=== PATIENT | male | born 1950 | race Caucasian/White ===

== ENCOUNTER 2020-12-11 09:32 | Inpatient (IN) | payer OTHER ==
[~2020-12-11] VITALS: Ht 172.7 cm; Wt 92.1 kg
--- NOTE | 2020-12-11 09:45 | NUR ---
PT [facility] FROM [facility] C/O WORSENING PAIN FROM HERNIA, STATES HAD HERNIA X 5 MONTHS, USUALLY HE BE ABLE TO REDUCE IT HIMSELF BUT UNABLE TO LATELY BECAUSE OF PAIN. PT DENIES ANY OTHER COMPLAIN HEAD OF TALENT MANAGEMENT. DENIES CHEST PAIN, NO CONSTIPATION ENDORSED. STABLE VITALS. AWAITING MD MURGUIA.
--- NOTE | 2020-12-11 10:06 | NUR ---
DR GARVEY AT BEDSIDE FOR EVAL.
--- NOTE | 2020-12-11 10:08 | NUR ---
PT ENDORSES TO DR GARVEY THAT HE NOTED BLOOD IN HIS STOOL THIS MORNING.
--- NOTE | 2020-12-11 10:10 | NUR ---
IV LINE STARTED. UNABLE TO DRAW BLOOD. LAB CALLED FOR BLOOD DRAW.
[2020-12-11] MEDS ORDERED: IV NS 0.9% 1,000 ML BAG IV ONE (10:30)
[2020-12-11 10:49] LABS: BASOPHILS % (AUTO) 0.6 % (0.0-2.0); EOSINOPHILS % (AUTO) 1.5 % (0.0-6.0); HEMATOCRIT 39 % (39-51); HEMOGLOBIN 13.1 g/dL (13.5-17.5); LYMPHOCYTES # (AUTO) 0.9 K/uL (0.8-4.8); LYMPHOCYTES % (AUTO) 12.1 % (20.0-44.0); MEAN CORPUSCULAR HGB CONC 34 g/dl (31.0-36.0); MEAN CORPUSCULAR VOLUME 85 fL (80-96); MONOCYTES # (AUTO) 0.4 K/uL (0.1-1.30); MONOCYTES % (AUTO) 4.8 % (2.0-12.0); NEUTROPHILS # (AUTO) 6.3 K/uL (1.8-8.9); PLATELET COUNT (AUTO) 330 K/uL (150-450); WHITE BLOOD COUNT (AUTO) 7.8 K/uL (4.3-11.0)
[2020-12-11 10:56] LABS: CALCIUM, SERUM 9.7 mg/dL (8.5-10.1); CREATININE 2.8 mg/dL (0.6-1.3); POTASSIUM 4.9 mmol/L (3.5-5.1)
[2020-12-11 11:03] LABS: ALBUMIN 4.3 g/dL (3.4-5.0); BILIRUBIN,DIRECT 0.2 mg/dL (0.0-0.2); BILIRUBIN,TOTAL 0.8 mg/dL (0.2-1.0); TOTAL PROTEIN, SERUM 8.6 g/dL (6.4-8.2)
--- NOTE | 2020-12-11 11:23 | NUR ---
PT TO RADIOLOGY FOR ABDOMINAL CT SCAN VIA [facility].
--- NOTE | 2020-12-11 11:25 | NUR ---
CALLED [facility] [phone] PCP IS [facility] [phone]
--- NOTE | 2020-12-11 11:30 | NUR ---
CALLED [facility]. [facility] [phone] OFFICE. NOT THERE. [employer] WORKER [employer] INSTRUMENTS INSPECTOR IS UZMA CAMERON [phone]
--- NOTE | 2020-12-11 11:37 | NUR ---
[employer] SALES COUNTERPERSON IS UZMA CAMERON [phone] GARVEY
--- NOTE | 2020-12-11 11:38 | NUR ---
RETURNED FROM CT SCAN.
--- NOTE | 2020-12-11 12:19 | NUR ---
CALLED [facility] [phone] NO LABS PER [facility]
[2020-12-11] MEDS ORDERED: ATOR80TA PO (13:05)
[2020-12-11] MEDS ORDERED: SPIR25TA6 PO (13:05)
[2020-12-11] MEDS ORDERED: FAMO-131 PO (13:05)
[2020-12-11] MEDS ORDERED: METO25TA6 PO (13:05)
[2020-12-11] MEDS ORDERED: ASPI-1420 PO (13:05)
[2020-12-11] MEDS ORDERED: INSU100V39 SQ ×2 (13:05)
[2020-12-11] MEDS ORDERED: INSU100V7 SQ (13:05)
[2020-12-11] MEDS ORDERED: CHOL200010 PO (13:05)
[2020-12-11] MEDS ORDERED: AMIO200T5 PO (13:05)
[2020-12-11] MEDS ORDERED: AMLO10TA4 PO (13:05)
[2020-12-11] MEDS ORDERED: BLOO-668 IN (13:05)
[2020-12-11] MEDS ORDERED: BENA40TA8 PO (13:05)
[2020-12-11] MEDS ORDERED: LORA10TA7 PO (13:05)
[2020-12-11] MEDS ORDERED: PANT40TA49 PO (13:05)
[2020-12-11] MEDS ORDERED: ONDANSETRON HCL/PF 4 MG/2 ML VIAL IVP PRN (13:30)
[2020-12-11] MEDS ORDERED: ZOLPIDEM TARTRATE 5 MG TABLET PO PRN (13:30)
[2020-12-11] MEDS ORDERED: MAGNESIUM HYDROXIDE 30 ML UDC PO PRN (13:30)
[2020-12-11] MEDS ORDERED: HEPARIN SODIUM, PORCINE 5000 UNITS/1 ML VIAL SQ ONE (13:30)
[2020-12-11] MEDS ORDERED: PIPERACILLIN /TAZOBACTAM 3.375 G in IV D5W 50 ML IV ONE (13:30)
[2020-12-11] MEDS ORDERED: ACETAMINOPHEN 325 MG TABLET PO PRN (13:30)
--- NOTE | 2020-12-11 14:20 | NUR ---
MARCIAL VERBAL AUTH FOR ADMISSION WILL FOLLOW UP ON MONDAY
--- NOTE | 2020-12-11 14:57 | NUR ---
bed 108
--- NOTE | 2020-12-11 15:08 | NUR ---
REPORT GIVEN TO CHILANGO AVILA. AWAITING TRANSFER TO FLOOR.
[2020-12-11] MEDS: IV NS 0.9% 1,000 ML IV PRN ×2 (17:20→21:24)
[2020-12-11 19:49] VITALS: BP 110/68
[2020-12-11 20:00] VITALS: BP 108/71
[2020-12-11] MEDS ORDERED: DEXTROSE 50%-WATER 50 ML DISP.SYRIN IV PRN (20:00)
[2020-12-11] MEDS: ATORVASTATIN 40 MG TABLET PO SCH (21:24)
[2020-12-11] MEDS: BLOOD SUGAR DIAGNOSTIC 1 EACH STRIP IN SCH (21:24)
[2020-12-11] MEDS: INSULIN REGULAR, HUMAN 100 UNIT/ML 3 ML VIAL SQ PRN (21:32)
[2020-12-11] MEDS: INSULIN GLARGINE, 100 UNIT/ML CARTRIDGE SQ SCH (21:32)
[2020-12-11] MEDS ORDERED: FAMOTIDINE (20 MG) 20 MG TABLET PO SCH (22:00)
[2020-12-12 04:00] VITALS: BP 93/52
[2020-12-12 06:16] LABS: EOSINOPHILS % (AUTO) 7.8 % (0.0-6.0); HEMATOCRIT 38 % (39-51); HEMOGLOBIN 12.6 g/dL (13.5-17.5); LYMPHOCYTES # (AUTO) 1.9 K/uL (0.8-4.8); LYMPHOCYTES % (AUTO) 39.4 % (20.0-44.0); MEAN CORPUSCULAR HGB CONC 33 g/dl (31.0-36.0); MEAN CORPUSCULAR VOLUME 86 fL (80-96); MONOCYTES # (AUTO) 0.5 K/uL (0.1-1.30); MONOCYTES % (AUTO) 9.5 % (2.0-12.0); NEUTROPHILS % (AUTO) 42.3 % (43.0-81.0); PLATELET COUNT (AUTO) 313 K/uL (150-450); RED BLOOD CELL COUNT(AUTO) 4.43 MIL/uL (4.5-6.0); WHITE BLOOD COUNT (AUTO) 4.8 K/uL (4.3-11.0)
[2020-12-12] MEDS: IV NS 0.9% 1,000 ML IV PRN ×2 (06:33→21:10)
[2020-12-12 06:44] LABS: CALCIUM, SERUM 9.1 mg/dL (8.5-10.1); CREATININE 2.3 mg/dL (0.6-1.3); PHOSPHORUS 4.3 mg/dL (2.5-4.9); POTASSIUM 5.3 mmol/L (3.5-5.1)
[2020-12-12] MEDS: PANTOPRAZOLE 40 MG TABLET.DR PO SCH (07:49)
[2020-12-12] MEDS: BLOOD SUGAR DIAGNOSTIC 1 EACH STRIP IN SCH ×4 (07:49→21:06)
[2020-12-12] MEDS: AMIODARONE HCL 200 MG TABLET PO SCH (08:06)
[2020-12-12] MEDS: ASPIRIN EC 81 MG TABLET.DR PO SCH (08:06)
[2020-12-12] MEDS: CHOLECALCIFEROL 1,000 UNIT TABLET (VIT D3) PO SCH (08:06)
[2020-12-12] MEDS: LORATADINE 10 MG TABLET PO SCH (08:06)
[2020-12-12] MEDS: AMLODIPINE BESYLATE 10 MG TABLET PO SCH (08:06)
[2020-12-12] MEDS: METOPROLOL TARTRATE 25 MG TABLET PO SCH (08:07)
[2020-12-12] MEDS: HEPARIN SODIUM, PORCINE 5000 UNITS/1 ML VIAL SQ SCH ×2 (08:17→21:10)
[2020-12-12] MEDS ORDERED: SODIUM POLYSTYRENE SULFONATE 15 G/60 ML BOTTLE PO ONE (11:15)
[2020-12-12 12:00] VITALS: BP 119/74
[2020-12-12] MEDS: INSULIN REGULAR, HUMAN 100 UNIT/ML 3 ML VIAL SQ PRN (12:25)
[2020-12-12 20:00] VITALS: BP 127/73
[2020-12-12] MEDS: ATORVASTATIN 40 MG TABLET PO SCH (21:08)
[2020-12-12] MEDS: INSULIN GLARGINE, 100 UNIT/ML CARTRIDGE SQ SCH (21:16)
[2020-12-13 04:00] VITALS: BP 104/57
[2020-12-13 07:05] LABS: EOSINOPHILS % (AUTO) 8.6 % (0.0-6.0); HEMATOCRIT 38 % (39-51); HEMOGLOBIN 12.9 g/dL (13.5-17.5); LYMPHOCYTES # (AUTO) 1.5 K/uL (0.8-4.8); LYMPHOCYTES % (AUTO) 33.6 % (20.0-44.0); MEAN CORPUSCULAR HGB CONC 34 g/dl (31.0-36.0); MEAN CORPUSCULAR VOLUME 85 fL (80-96); MONOCYTES # (AUTO) 0.4 K/uL (0.1-1.30); MONOCYTES % (AUTO) 9.8 % (2.0-12.0); NEUTROPHILS # (AUTO) 2.1 K/uL (1.8-8.9); PLATELET COUNT (AUTO) 314 K/uL (150-450); RED BLOOD CELL COUNT(AUTO) 4.48 MIL/uL (4.5-6.0); WHITE BLOOD COUNT (AUTO) 4.5 K/uL (4.3-11.0)
[2020-12-13 07:20] LABS: BILIRUBIN,URINE NEGATIVE (NEGATIVE); LEUKOCYTE ESTERASE ,URINE NEGATIVE (NEGATIVE); NITRITE, URINE NEGATIVE (NEGATIVE); PROTEIN,URINE NEGATIVE (NEGATIVE); UGLUCOSE NEGATIVE (NEGATIVE); UROBILINOGEN,URINE 0.2 EU/dL (0.2)
[2020-12-13 07:21] LABS: COLOR,URINE STRAW (YELLOW)
[2020-12-13] MEDS: BLOOD SUGAR DIAGNOSTIC 1 EACH STRIP IN SCH ×2 (07:30→11:41)
[2020-12-13 07:47] LABS: CREATININE, URINE 32.8 MG/DL (30.0-125.0); URINE TOTAL PROTEIN 1.9 mg/dL (0-11.9)
[2020-12-13 07:50] LABS: ALBUMIN 3.7 g/dL (3.4-5.0); BILIRUBIN,TOTAL 1.1 mg/dL (0.2-1.0); CREATININE 1.9 mg/dL (0.6-1.3); MAGNESIUM 2.1 mg/dL (1.8-2.4); POTASSIUM 4.6 mmol/L (3.5-5.1); TOTAL PROTEIN, SERUM 7.5 g/dL (6.4-8.2)
--- NOTE | 2020-12-13 08:00 | NUR ---
rn notes received pt awake and alert; denies pain at this time. not in any form of distress safety ensured, call light within reach
[2020-12-13] MEDS: CHOLECALCIFEROL 1,000 UNIT TABLET (VIT D3) PO SCH (09:28)
[2020-12-13] MEDS: ASPIRIN EC 81 MG TABLET.DR PO SCH (09:28)
[2020-12-13] MEDS: AMIODARONE HCL 200 MG TABLET PO SCH (09:29)
[2020-12-13] MEDS: METOPROLOL TARTRATE 25 MG TABLET PO SCH (09:29)
[2020-12-13] MEDS: LORATADINE 10 MG TABLET PO SCH (09:29)
[2020-12-13] MEDS: AMLODIPINE BESYLATE 10 MG TABLET PO SCH (09:30)
[2020-12-13] MEDS: HEPARIN SODIUM, PORCINE 5000 UNITS/1 ML VIAL SQ SCH (09:30)
[2020-12-13] MEDS: PANTOPRAZOLE 40 MG TABLET.DR PO SCH (09:32)
[2020-12-13 10:39] LABS: EOSINOPHIL,URINE None Seen
[2020-12-13 14:47] VITALS: BP 140/57
--- NOTE | 2020-12-13 15:08 | NUR ---
rn notes discharge pt to [facility] arrainged by telehealth case manager. no c/o pain, skin is intact at time of discharge. ivhl removed; no bleeding, ,.covered with clean and dry dressing. abdominal binder in place. picked up by ambulance via gurney in stable condition
[2020-12-14 16:07] LABS: *SPE A/G RATIO 1.1 (0.7-1.7); *SPE ALBUMIN 3.6 g/dL (2.9-4.4); *SPE ALPHA-1-GLOBULIN 0.1 g/dL (0.0-0.4); *SPE ALPHA-2-GLOBULIN 0.6 g/dL (0.4-1.0); *SPE GLOBULIN, TOTAL 3.3 g/dL (2.2-3.9); *SPE M-SPIKE 0.5 g/dL (Not Observed); *SPEGAMMA GLOBULIN 1.6 g/dL (0.4-1.8)
--- NOTE | 2020-12-14 16:08 | NUR ---
SS Consult requested over the weekend. However, pt. was already D/C.
== END 2020-12-13 15:07 | DRG 393 ==
LOC: ER 09:42 → TELE1 15:20 → MEDSG1 16:01
PROVIDERS: ADMIT Nurse Practitioner Acute Care; ATTEND Nurse Practitioner Acute Care
DX: K42.9 Umbilical hernia without obstruction or gangrene (principal); N17.0 Acute kidney failure with tubular necrosis; E11.9 Type 2 diabetes mellitus without complications; E87.5 Hyperkalemia; I10 Essential (primary) hypertension; Z79.4 Long term (current) use of insulin; Z20.822 Contact with and (suspected) exposure to COVID-19
CPT/HCPCS: 36415; 80048-TC; 80053-TC; 80061-TC; 80076-TC; 82550-TC; 82570-TC; 82962-TC; 83605-TC; 83690-TC; 83735-TC; 83970; 84100-TC; 84155; 84155-TC; 84165; 84300-TC; 85025-TC; 87040-TC; 87081-TC; G0378; J1644; J1815; J2543; J7030; J7060; U0003

== ENCOUNTER 2021-01-13 16:54 | Emergency (ER) | payer OTHER ==
[~2021-01-13] VITALS: Ht 172.7 cm; Wt 98.0 kg
[~2021-01-13 16:54] MED LIST: AMIO200T5 PO; AMLO10TA4 PO; ASPI-1420 PO; ATOR80TA PO; BLOO-668 IN; CHOL200010 PO; FAMO-131 PO; INSU100V39 SQ; INSU100V7 SQ; LORA10TA7 PO; METO25TA6 PO; PANT40TA49 PO; SPIR25TA6 PO
--- NOTE | 2021-01-13 17:11 | NUR ---
TO ER BED 4, C/O HYPOTENSION AND BRADYCARDIA, ATTACHED TO MONITOR, CHANGED INTO GOWN, SALINE LOCK ESTABLISHED, BLOOD DRAWN, SEEN BY
[2021-01-13] MEDS ORDERED: IV NS 0.9% 1,000 ML BAG IV ONE (17:30)
[2021-01-13 17:32] LABS: BASOPHILS # (AUTO) 0.1 K/uL (0.0-0.2); EOSINOPHILS % (AUTO) 8.2 % (0.0-6.0); HEMATOCRIT 36 % (39-51); HEMOGLOBIN 12.2 g/dL (13.5-17.5); LYMPHOCYTES # (AUTO) 1.8 K/uL (0.8-4.8); LYMPHOCYTES % (AUTO) 33.9 % (20.0-44.0); MEAN CORPUSCULAR HGB CONC 34 g/dl (31.0-36.0); MEAN CORPUSCULAR VOLUME 86 fL (80-96); MONOCYTES # (AUTO) 0.5 K/uL (0.1-1.30); MONOCYTES % (AUTO) 9.4 % (2.0-12.0); NEUTROPHILS # (AUTO) 2.4 K/uL (1.8-8.9); NEUTROPHILS % (AUTO) 46.5 % (43.0-81.0); PLATELET COUNT (AUTO) 332 K/uL (150-450); RED BLOOD CELL COUNT(AUTO) 4.19 MIL/uL (4.5-6.0); WHITE BLOOD COUNT (AUTO) 5.2 K/uL (4.3-11.0)
[2021-01-13 17:56] LABS: CALCIUM, SERUM 8.9 mg/dL (8.5-10.1); CARBON DIOXIDE 24 mmol/L (21-32); CHLORIDE 101 mmol/L (98-107); CREATININE 3.9 mg/dL (0.6-1.3); GLUCOSE 104 mg/dL (74-106); POTASSIUM 5.8 mmol/L (3.5-5.1); SODIUM SERUM 134 mmol/L (136-145); UREA NITROGEN, BLOOD 54 mg/dL (7-18)
--- NOTE | 2021-01-13 18:00 | NUR ---
ABDOMINAL BINDER IN PLACE
[2021-01-13 18:01] LABS: ALANINE AMINOTRANSFERASE 30 U/L (12-78); ALKALINE PHOSPHATASE 61 U/L (46-116); ASPARTATE AMINOTRANSFERASE 17 U/L (15-37); BILIRUBIN,DIRECT 0.2 mg/dL (0.0-0.2); BILIRUBIN,TOTAL 0.6 mg/dL (0.2-1.0); LIPASE 187 U/L (73-393); TOTAL PROTEIN, SERUM 8.1 g/dL (6.4-8.2)
--- NOTE | 2021-01-13 18:02 | NUR ---
TAKEN TO CT
--- NOTE | 2021-01-13 18:03 | NUR ---
MD CHANGED ORDER TO NON-CONTRAST CT.
[2021-01-13] MEDS ORDERED: ASPI-1169 PO (18:12)
[2021-01-13] MEDS ORDERED: INSU100V36 SQ (18:12)
[2021-01-13] MEDS ORDERED: CHOL100062 PO (18:12)
[2021-01-13] MEDS ORDERED: ACET-868 PO (18:12)
[2021-01-13] MEDS ORDERED: ICOS1CAP PO (18:12)
[2021-01-13] MEDS ORDERED: INSU100I26 SQ (18:12)
[2021-01-13] MEDS ORDERED: BENA40TA8 PO (18:12)
--- NOTE | 2021-01-13 18:14 | NUR ---
CALLED LAB FOR COVID PCR SWAB
[2021-01-13] MEDS ORDERED: SODIUM BICARBONATE SYR 50 MEQ/50 ML DISP.SYRIN IV ONE (18:30)
[2021-01-13] MEDS ORDERED: ALBUTEROL FS 2.5 MG/3 ML VIAL.NEB NEB ONE (18:30)
[2021-01-13] MEDS ORDERED: FUROSEMIDE 40 MG/4 ML VIAL IV ONE (18:30)
[2021-01-13] MEDS ORDERED: CALCIUM CHLORIDE 1,000 MG/10 ML DISP.SYRIN IV ONE (18:30)
--- NOTE | 2021-01-13 19:03 | NUR ---
PCR SWAB DONE AND SENT TO LAB
[2021-01-13] MEDS ORDERED: CALCIUM CHLORIDE 1,000 MG/10 ML DISP.SYRIN ONE (19:07)
[2021-01-13] MEDS ORDERED: FUROSEMIDE 20 MG/2 ML VIAL ONE (19:07)
[2021-01-13] MEDS ORDERED: SODIUM BICARBONATE SYR 50 MEQ/50 ML DISP.SYRIN ONE (19:07)
--- NOTE | 2021-01-13 19:07 | NUR ---
CALLED RT FOR BREATHING TX
[2021-01-13] MEDS ORDERED: ALBUTEROL FS 2.5 MG/3 ML VIAL.NEB ONE (19:15)
--- NOTE | 2021-01-13 19:17 | NUR ---
REPORT GIVEN TO TYLOR AVILA
--- NOTE | 2021-01-13 19:27 | NUR ---
pt in bned receiving breathing tx. reported feeling ok. remained on bus monitor
--- NOTE | 2021-01-13 20:32 | NUR ---
MARYELLENID SWABBED, SENT TO LAB.
--- NOTE | 2021-01-13 21:55 | NUR ---
semaj, (girl friend),
--- NOTE | 2021-01-13 22:01 | NUR ---
DR. MCKEON SPEAKING WITH DR. SMITH
--- NOTE | 2021-01-13 22:17 | NUR ---
Emerita willett in [facility] - 01/13/21 at 2235 by STEPHEN PT ACCEPTED AT [facility] ACCEPTING MD SMITH PHONE NUMBER FOR REPORT
--- NOTE | 2021-01-13 22:17 | NUR ---
PT ACCEPTED AT [facility] ACCEPTING MD SMITH PHONE NUMBER FOR REPORT
--- NOTE | 2021-01-13 22:21 | NUR ---
[facility] CALLED FOR ALS TRANSPORT ETA [phone].
--- NOTE | 2021-01-13 22:46 | NUR ---
REPORT GIVEN TO HUE AT [facility].
--- NOTE | 2021-01-14 02:57 | NUR ---
PT ACCEPTED AT [facility] ACCEPTING MD SMITH PT WILL GO TO ROOM 422 PHONE # FOR REPORT
--- NOTE | 2021-01-14 03:00 | NUR ---
[facility] CALLED FOR ALS TRANSPORT ETA [phone].
--- NOTE | 2021-01-14 03:36 | NUR ---
called Mónica again and updated her re pt's condition and arrival
[2021-01-14 04:04] VITALS: BP 109/72
--- NOTE | 2021-01-14 04:07 | NUR ---
[facility] at bed side to cotton picker operator the pt. report given
--- NOTE | 2021-01-14 04:30 | NUR ---
PT WAS PICKED UP BY [facility] AND TRANSFERRED TO [facility] UNDER ACLS. ALL BELONGINGS WERE PICKED UP BY [facility].
[2021-01-14] MEDS ORDERED: PANTOPRAZOLE 40 MG TABLET.DR PO SCH (07:30)
[2021-01-14] MEDS ORDERED: CHOLECALCIFEROL 1,000 UNIT TABLET (VIT D3) PO SCH (09:00)
[2021-01-14] MEDS ORDERED: AMIODARONE HCL 200 MG TABLET PO SCH (09:00)
[2021-01-14] MEDS ORDERED: ASPIRIN 81 MG TAB.CHEW PO SCH (09:00)
[2021-01-14] MEDS ORDERED: LORATADINE 10 MG TABLET PO SCH (09:00)
== END 2021-01-14 04:30 | disposition short-term general hospital (02) ==
LOC: ER 16:54
DX: E87.5 Hyperkalemia (principal); K42.9 Umbilical hernia without obstruction or gangrene; K80.20 Calculus of gallbladder without cholecystitis without obstruction; K44.9 Diaphragmatic hernia without obstruction or gangrene; Z20.822 Contact with and (suspected) exposure to COVID-19; K57.30 Diverticulosis of large intestine without perforation or abscess without bleeding; I71.2 Thoracic aortic aneurysm, without rupture; Z79.899 Other long term (current) drug therapy; E11.9 Type 2 diabetes mellitus without complications; Z79.4 Long term (current) use of insulin; I10 Essential (primary) hypertension; R94.31 Abnormal electrocardiogram [ECG] [EKG]
CPT/HCPCS: 36415; 74176; 80048; 80076; 83605; 83690; 84484; 85025; 87081; 87426; 93005; 94640; 96361; 96374; 96375; 99291; C9803; J1940; J3490 ×2; J7030; U0003

== ENCOUNTER 2021-03-02 07:52 | Emergency (ER) | payer OTHER ==
[~2021-03-02] VITALS: Ht 170.2 cm; Wt 96.6 kg
[~2021-03-02 07:52] MED LIST changes: +ACET-868 PO; +ASPI-1169 PO; -ASPI-1420 PO; +BENA40TA8 PO; +CHOL100062 PO; -CHOL200010 PO; -FAMO-131 PO; +ICOS1CAP PO; +INSU100I26 SQ; +INSU100V36 SQ; -INSU100V39 SQ; -INSU100V7 SQ
[2021-03-02] MEDS ORDERED: INSU100V36 SQ (08:09)
[2021-03-02] MEDS ORDERED: FAMO20TA8 PO (08:09)
[2021-03-02] MEDS ORDERED: DOCU-141 PO (08:09)
[2021-03-02] MEDS ORDERED: OMEG1CAP PO (08:09)
--- NOTE | 2021-03-02 08:20 | NUR ---
PATIENT RECEIVED ,AXOX3.NO SOB NO DISTRESS NOTED.ABDOMINAL PAIN,HERNIA NOTED IN UMBULICAL AREA.PAIN 6/10.NO OTHER COMPLAINTS,H/O POSITIVE COVID,USING O2.
[2021-03-02] MEDS ORDERED: ACETAMINOPHEN ES 500 MG TABLET PO ONE ×2 (08:30)
[2021-03-02] MEDS ORDERED: ACETAMINOPHEN ES 500 MG TABLET ONE (08:36)
--- NOTE | 2021-03-02 08:42 | NUR ---
BLOOD DRAWN BY LAB,O2 SAT 915.PLACED ON O2 2L VIA NASAL CANULA,O2 SAT 97% WITH O2.
--- NOTE | 2021-03-02 08:44 | NUR ---
TYELENOL TWO DUPLICATE ORDER.ADMINISTERED 500MG.
[2021-03-02 09:06] LABS: CALCIUM, SERUM 9.2 mg/dL (8.5-10.1); CREATININE 2.4 mg/dL (0.6-1.3); POTASSIUM 4.8 mmol/L (3.5-5.1)
[2021-03-02 09:08] LABS: BASOPHILS % (AUTO) 0.4 % (0.0-2.0); EOSINOPHILS % (AUTO) 0.8 % (0.0-6.0); HEMATOCRIT 38 % (39-51); HEMOGLOBIN 12.7 g/dL (13.5-17.5); LYMPHOCYTES # (AUTO) 0.6 K/uL (0.8-4.8); LYMPHOCYTES % (AUTO) 7.7 % (20.0-44.0); MEAN CORPUSCULAR HGB CONC 34 g/dl (31.0-36.0); MEAN CORPUSCULAR VOLUME 87 fL (80-96); MONOCYTES # (AUTO) 0.3 K/uL (0.1-1.30); MONOCYTES % (AUTO) 4.6 % (2.0-12.0); NEUTROPHILS # (AUTO) 6.5 K/uL (1.8-8.9); NEUTROPHILS % (AUTO) 86.5 % (43.0-81.0); PLATELET COUNT (AUTO) 318 K/uL (150-450); RED BLOOD CELL COUNT(AUTO) 4.36 MIL/uL (4.5-6.0); WHITE BLOOD COUNT (AUTO) 7.5 K/uL (4.3-11.0)
--- NOTE | 2021-03-02 09:47 | NUR ---
TRANSPORT [facility] CALLED VERY BUSY... ETA 1400
--- NOTE | 2021-03-02 09:50 | NUR ---
[facility] CALLED ETA 60 MINS PER [facility].
--- NOTE | 2021-03-02 09:53 | NUR ---
DISCAHRGE INSTRUCTIONS GIVEN TO THE PATIENT AND S/S OF WORSENIG SYMPTOMS INFORMED.PATIENT VERBALIZED UNDERSTANDING.PATIENT WILL GO BACK TO SNF.
[2021-03-02 10:11] VITALS: BP 125/77
--- NOTE | 2021-03-02 10:50 | NUR ---
REPORT GIVEN TO [facility] FOR [facility]
== END 2021-03-02 10:52 ==
LOC: ER 08:00
DX: K42.9 Umbilical hernia without obstruction or gangrene (principal); N19 Unspecified kidney failure; I10 Essential (primary) hypertension; E11.9 Type 2 diabetes mellitus without complications; Z79.899 Other long term (current) drug therapy; Z79.82 Long term (current) use of aspirin; Z79.4 Long term (current) use of insulin
CPT/HCPCS: 36415; 80048-TC; 85025-TC

== ENCOUNTER 2023-07-18 20:32 | Inpatient (IN) | payer BC, MEDICAID ==
[~2023-07-18] VITALS: Ht 170.2 cm; Wt 96.6 kg
[~2023-07-18 20:32] MED LIST changes: -ACET-868 PO; +DOCU-141 PO; +FAMO20TA8 PO; -ICOS1CAP PO; +OMEG1CAP PO
[2023-07-18] MEDS ORDERED: MORPHINE SULFATE INJ 4 MG/ML DISP.SYRIN ONE (21:29)
[2023-07-18] MEDS ORDERED: ONDANSETRON HCL/PF 4 MG/2 ML VIAL ONE (21:29)
[2023-07-18] MEDS: ONDANSETRON HCL/PF 4 MG/2 ML VIAL IVP ONE (21:31)
[2023-07-18] MEDS: MORPHINE SULFATE INJ 2 MG/ML DISP.SYRIN IV ONE (21:31)
[2023-07-18 21:39] LABS: BASOPHILS % (AUTO) 0.4 % (0.0-2.0); EOSINOPHILS # (AUTO) 0.1 K/uL (0.0-0.7); EOSINOPHILS % (AUTO) 1.2 % (0.0-6.0); HEMATOCRIT 50 % (39-51); HEMOGLOBIN 16.6 g/dL (13.5-17.5); LYMPHOCYTES # (AUTO) 0.9 K/uL (0.8-4.8); LYMPHOCYTES % (AUTO) 12.1 % (20.0-44.0); MEAN CORPUSCULAR HEMOGLOBIN 29 PG (26.0-33.0); MEAN CORPUSCULAR HGB CONC 33 g/dl (31.0-36.0); MEAN CORPUSCULAR VOLUME 86 fL (80-96); MONOCYTES # (AUTO) 0.4 K/uL (0.1-1.30); MONOCYTES % (AUTO) 4.9 % (2.0-12.0); NEUTROPHILS # (AUTO) 6.3 K/uL (1.8-8.9); NEUTROPHILS % (AUTO) 81.4 % (43.0-81.0); PLATELET COUNT (AUTO) 257 K/uL (150-450); RED BLOOD CELL COUNT(AUTO) 5.78 MIL/uL (4.5-6.0); RED CELL DISTRIBUTION WIDTH 15.6 % (11.5-15.0); WHITE BLOOD COUNT (AUTO) 7.8 K/uL (4.3-11.0)
[2023-07-18 21:57] LABS: ALBUMIN 3.9 g/dL (3.4-5.0); BILIRUBIN,TOTAL 0.9 mg/dL (0.2-1.0)
[2023-07-18] MEDS ORDERED: DEXTROSE 50%-WATER 50 ML DISP.SYRIN IV ONE (22:00)
[2023-07-18] MEDS ORDERED: SODIUM POLYSTYRENE SULFONATE 15 G/60 ML BOTTLE PO ONE (22:00)
[2023-07-18] MEDS ORDERED: CALCIUM CHLORIDE 1,000 MG/10 ML DISP.SYRIN IV ONE (22:00)
[2023-07-18] MEDS ORDERED: INSULIN REGULAR, HUMAN 100 UNIT/ML 10 ML VIAL IV ONE (22:00)
[2023-07-18] MEDS ORDERED: ALBUTEROL FS 2.5 MG/3 ML VIAL.NEB NEB ONE (22:00)
[2023-07-18 22:22] LABS: CALCIUM, SERUM 10.4 mg/dL (8.5-10.1); CREATININE 2.4 mg/dL (0.6-1.3); POTASSIUM 4.9 mmol/L (3.5-5.1)
[2023-07-19] MEDS ORDERED: ACETAMINOPHEN 325 MG TABLET PO PRN (06:00)
[2023-07-19] MEDS ORDERED: MORPHINE SULFATE INJ 2 MG/ML DISP.SYRIN IV PRN (06:00)
[2023-07-19] MEDS ORDERED: DEXTROSE 50%-WATER 50 ML DISP.SYRIN IV PRN (06:00)
[2023-07-19] MEDS ORDERED: hydrALAZINE HCL IV 20 MG VIAL IV PRN (06:00)
[2023-07-19 07:28] LABS: INR 0.98 (0.91-1.10); PROTHROMBIN TIME 10.4 SECS (9.2-11.1)
[2023-07-19] MEDS: BLOOD SUGAR DIAGNOSTIC 1 EACH STRIP VI SCH (07:46)
[2023-07-19] MEDS ORDERED: ICOS1CAP PO (08:47)
[2023-07-19] MEDS ORDERED: DULA1.5P SQ (08:47)
[2023-07-19] MEDS ORDERED: INSU100I34 SQ (08:47)
[2023-07-19] MEDS ORDERED: DAPA10TA PO (08:47)
[2023-07-19] MEDS ORDERED: AMLODIPINE BESYLATE 10 MG TABLET PO SCH (09:00)
[2023-07-19] MEDS: ASPIRIN 81 MG TAB.CHEW PO SCH (09:00)
[2023-07-19 09:30] VITALS: BP 110/72; TEMP 98.2; O2SAT 96
[2023-07-19] MEDS: DOCUSATE SODIUM 100 MG CAPSULE PO SCH (10:24)
[2023-07-19] MEDS: BENAZEPRIL HCL 20 MG TABLET PO SCH (10:25)
[2023-07-19] MEDS: AMIODARONE HCL 200 MG TABLET PO SCH (10:25)
[2023-07-19] MEDS: SPIRONOLACTONE 25 MG TABLET PO SCH (10:25)
[2023-07-19] MEDS: METOPROLOL TARTRATE 25 MG TABLET PO SCH (10:26)
[2023-07-19] MEDS: IV NS 0.9% 1,000 ML IV SCH (10:29)
[2023-07-19] MEDS: ENOXAPARIN SODIUM 30 MG/0.3 ML DISP.SYRIN SQ SCH (10:30)
[2023-07-19] MEDS: ONDANSETRON HCL/PF 4 MG/2 ML VIAL IVP PRN (10:49)
[2023-07-19 15:02] VITALS: BP 149/131; TEMP 97.9; O2SAT 96
[2023-07-19 16:00] VITALS: BP 110/72; TEMP 98.2; O2SAT 96
[2023-07-19] MEDS: ATORVASTATIN 40 MG TABLET PO SCH (22:01)
[2023-07-19] MEDS: *INSULIN REGULAR(HUMULIN R)HUM 100 UNIT/ML VIAL SQ PRN (23:34)
[2023-07-20 07:48] LABS: BASOPHILS % (AUTO) 0.6 % (0.0-2.0); EOSINOPHILS # (AUTO) 0.4 K/uL (0.0-0.7); EOSINOPHILS % (AUTO) 7.9 % (0.0-6.0); HEMATOCRIT 41 % (39-51); HEMOGLOBIN 13.7 g/dL (13.5-17.5); LYMPHOCYTES # (AUTO) 1.4 K/uL (0.8-4.8); LYMPHOCYTES % (AUTO) 30.7 % (20.0-44.0); MEAN CORPUSCULAR HEMOGLOBIN 29 PG (26.0-33.0); MEAN CORPUSCULAR HGB CONC 34 g/dl (31.0-36.0); MEAN CORPUSCULAR VOLUME 85 fL (80-96); MONOCYTES # (AUTO) 0.5 K/uL (0.1-1.30); MONOCYTES % (AUTO) 10.8 % (2.0-12.0); NEUTROPHILS # (AUTO) 2.2 K/uL (1.8-8.9); PLATELET COUNT (AUTO) 244 K/uL (150-450); RED BLOOD CELL COUNT(AUTO) 4.79 MIL/uL (4.5-6.0); WHITE BLOOD COUNT (AUTO) 4.4 K/uL (4.3-11.0)
[2023-07-20 08:42] LABS: ALBUMIN 3.1 g/dL (3.4-5.0); BILIRUBIN,TOTAL 0.8 mg/dL (0.2-1.0); CREATININE 2.5 mg/dL (0.6-1.3); MAGNESIUM 2.6 mg/dL (1.8-2.4); PHOSPHORUS 4.1 mg/dL (2.5-4.9); POTASSIUM 4.5 mmol/L (3.5-5.1); TOTAL PROTEIN, SERUM 6.8 g/dL (6.4-8.2)
[2023-07-20] MEDS ORDERED: AMLODIPINE BESYLATE 10 MG TABLET PO SCH (09:00)
[2023-07-20] MEDS: INSULIN REGULAR, HUMAN 100 UNIT/ML 3 ML VIAL SQ PRN (17:59)
[2023-07-20 20:55] VITALS: BP 112/66; TEMP 97.9; O2SAT 99
[2023-07-21] VITALS (26 sets, daily range): BP systolic 101–150; BP diastolic 59–85; TEMP 97.5–98.7; O2SAT 95–100
[2023-07-21 06:25] LABS: BASOPHILS % (AUTO) 0.5 % (0.0-2.0); EOSINOPHILS # (AUTO) 0.4 K/uL (0.0-0.7); EOSINOPHILS % (AUTO) 9.9 % (0.0-6.0); HEMATOCRIT 40 % (39-51); HEMOGLOBIN 13.2 g/dL (13.5-17.5); LYMPHOCYTES # (AUTO) 1.3 K/uL (0.8-4.8); LYMPHOCYTES % (AUTO) 33.8 % (20.0-44.0); MEAN CORPUSCULAR HEMOGLOBIN 28 PG (26.0-33.0); MEAN CORPUSCULAR HGB CONC 33 g/dl (31.0-36.0); MEAN CORPUSCULAR VOLUME 85 fL (80-96); MONOCYTES # (AUTO) 0.4 K/uL (0.1-1.30); MONOCYTES % (AUTO) 11.5 % (2.0-12.0); NEUTROPHILS # (AUTO) 1.6 K/uL (1.8-8.9); NEUTROPHILS % (AUTO) 44.3 % (43.0-81.0); PLATELET COUNT (AUTO) 243 K/uL (150-450); RED BLOOD CELL COUNT(AUTO) 4.67 MIL/uL (4.5-6.0); RED CELL DISTRIBUTION WIDTH 14.7 % (11.5-15.0); WHITE BLOOD COUNT (AUTO) 3.7 K/uL (4.3-11.0)
[2023-07-21 06:38] LABS: CALCIUM, SERUM 9.1 mg/dL (8.5-10.1); CREATININE 2.3 mg/dL (0.6-1.3); POTASSIUM 4.2 mmol/L (3.5-5.1)
[2023-07-21 07:07] LABS: PTH, INTACT 24 pg/mL (15-65)
[2023-07-21] MEDS ORDERED: LIDOCAINE 1%-EPI 1:100,000 20 ML VIAL ONE (07:35)
[2023-07-21] MEDS ORDERED: BUPIVACAINE 0.5 % PF 150 MG/30 ML VIAL ONE (07:35)
[2023-07-21] MEDS ORDERED: ANESTHESIA TRAY IN PYXIS 1 EA TRAY MC ONE (07:35)
[2023-07-21] MEDS ORDERED: MIDAZOLAM HCL 2 MG/2ML VIAL ONE (07:54)
[2023-07-21] MEDS ORDERED: FENTANYL PF 100MCG/2ML AMPUL ONE (07:54)
[2023-07-21] MEDS ORDERED: BACITRACIN ZINC OINT (15 GM) 15 GM TUBE TP ONE (09:01)
[2023-07-21] MEDS ORDERED: ATROPINE SULFATE 1 MG/10 ML DISP.SYRIN ONE ×2 (09:33→10:07)
[2023-07-21 11:10] LABS: *SPE ALBUMIN 3.2 g/dL (2.9-4.4); *SPE ALPHA-1-GLOBULIN 0.2 g/dL (0.0-0.4); *SPE ALPHA-2-GLOBULIN 0.7 g/dL (0.4-1.0); *SPE BETA GLOBULIN 0.9 g/dL (0.7-1.3); *SPE GLOBULIN, TOTAL 3.3 g/dL (2.2-3.9); *SPE M-SPIKE 0.5 g/dL (Not Observed); *SPE PROTEIN TOTAL 6.5 g/dL (6.0-8.5); *SPEGAMMA GLOBULIN 1.5 g/dL (0.4-1.8)
[2023-07-21 11:49] LABS: ABG BASE EXCESS -6.4 mmol/L; ABG OXYGEN SATURATION 94.3 % (92.0-98.5); ABG PCO2 40.8 mmHg (35.0-45.0); ABG PO2 78.4 mmHg (75.0-100.0); ABG TOTAL HEMOGLOBIN 14.8 G/dL (13.5-18.0); AaDO2 268.4 mmHg; COHb 0.8 % (0.5-1.5); MetHb 0.5 % (0.0-1.5); O2Hb 93.1 % (94.0-97.0); SITE, ABG Right Brachial; VENT MODE, BG SIMPLE MASK
[2023-07-21] MEDS: GABAPENTIN 100 MG CAPSULE PO SCH (12:31)
[2023-07-21] MEDS: CELECOXIB 100 MG CAPSULE PO SCH (12:31)
[2023-07-21] MEDS: ACETAMINOPHEN 325 MG TABLET PO SCH (12:31)
[2023-07-21] MEDS: ALBUTEROL HALF STRENGTH 1.25 MG/3 ML VIAL.NEB NEB SCH (14:00)
[2023-07-21] MEDS: IPRATROPIUM NEB FS 0.5 MG/2.5 ML AMPUL.NEB NEB SCH (14:00)
[2023-07-22] VITALS (13 sets, daily range): BP systolic 109–142; BP diastolic 63–75; TEMP 97.5–98.6; O2SAT 94–100
[2023-07-22 09:18] LABS: BASOPHILS % (AUTO) 0.6 % (0.0-2.0); EOSINOPHILS # (AUTO) 0.3 K/uL (0.0-0.7); EOSINOPHILS % (AUTO) 4.3 % (0.0-6.0); HEMATOCRIT 40 % (39-51); HEMOGLOBIN 13.4 g/dL (13.5-17.5); LYMPHOCYTES # (AUTO) 0.9 K/uL (0.8-4.8); LYMPHOCYTES % (AUTO) 14.3 % (20.0-44.0); MEAN CORPUSCULAR HEMOGLOBIN 28 PG (26.0-33.0); MEAN CORPUSCULAR HGB CONC 33 g/dl (31.0-36.0); MEAN CORPUSCULAR VOLUME 85 fL (80-96); MONOCYTES # (AUTO) 0.8 K/uL (0.1-1.30); MONOCYTES % (AUTO) 12.3 % (2.0-12.0); NEUTROPHILS # (AUTO) 4.3 K/uL (1.8-8.9); NEUTROPHILS % (AUTO) 68.5 % (43.0-81.0); PLATELET COUNT (AUTO) 240 K/uL (150-450); RED BLOOD CELL COUNT(AUTO) 4.71 MIL/uL (4.5-6.0); RED CELL DISTRIBUTION WIDTH 15.2 % (11.5-15.0); WHITE BLOOD COUNT (AUTO) 6.2 K/uL (4.3-11.0)
[2023-07-22 09:33] LABS: CALCIUM, SERUM 8.7 mg/dL (8.5-10.1); CREATININE 1.8 mg/dL (0.6-1.3); MAGNESIUM 1.9 mg/dL (1.8-2.4); PHOSPHORUS 3.9 mg/dL (2.5-4.9); POTASSIUM 4.4 mmol/L (3.5-5.1); TOTAL PROTEIN, SERUM 6.9 g/dL (6.4-8.2)
[2023-07-23] VITALS (12 sets, daily range): BP systolic 98–129; BP diastolic 62–70; TEMP 97.9–98.5; O2SAT 94–100
[2023-07-23 06:32] LABS: BASOPHILS % (AUTO) 0.3 % (0.0-2.0); EOSINOPHILS # (AUTO) 0.3 K/uL (0.0-0.7); EOSINOPHILS % (AUTO) 5.9 % (0.0-6.0); HEMATOCRIT 37 % (39-51); HEMOGLOBIN 12.4 g/dL (13.5-17.5); LYMPHOCYTES % (AUTO) 18.5 % (20.0-44.0); MEAN CORPUSCULAR HEMOGLOBIN 29 PG (26.0-33.0); MEAN CORPUSCULAR HGB CONC 33 g/dl (31.0-36.0); MEAN CORPUSCULAR VOLUME 86 fL (80-96); MONOCYTES # (AUTO) 0.7 K/uL (0.1-1.30); MONOCYTES % (AUTO) 12.9 % (2.0-12.0); NEUTROPHILS # (AUTO) 3.5 K/uL (1.8-8.9); NEUTROPHILS % (AUTO) 62.4 % (43.0-81.0); PLATELET COUNT (AUTO) 221 K/uL (150-450); RED BLOOD CELL COUNT(AUTO) 4.34 MIL/uL (4.5-6.0); RED CELL DISTRIBUTION WIDTH 14.9 % (11.5-15.0); WHITE BLOOD COUNT (AUTO) 5.6 K/uL (4.3-11.0)
[2023-07-23 06:54] LABS: ALBUMIN 2.7 g/dL (3.4-5.0); BILIRUBIN,TOTAL 0.8 mg/dL (0.2-1.0); CALCIUM, SERUM 8.5 mg/dL (8.5-10.1); CREATININE 1.9 mg/dL (0.6-1.3); MAGNESIUM 2.2 mg/dL (1.8-2.4); PHOSPHORUS 4.3 mg/dL (2.5-4.9); POTASSIUM 4.2 mmol/L (3.5-5.1); TOTAL PROTEIN, SERUM 6.4 g/dL (6.4-8.2)
[2023-07-23] MEDS ORDERED: IV NS 0.9% 250 ML IV ONE (14:38)
[2023-07-23] MEDS ORDERED: IOHEXOL-350 100 ML VIAL IV ONE (14:38)
[2023-07-23] MEDS ORDERED: CT SWABBABLE VALVE TRANS SET 1 EA INFUS.SET MC ONE (14:38)
[2023-07-23] MEDS: IV NS 0.9% 1,000 ML IV SCH (15:20)
[2023-07-24] VITALS (13 sets, daily range): BP systolic 101–131; BP diastolic 53–84; TEMP 97.5–98.2; O2SAT 94–100
[2023-07-24 07:18] LABS: CALCIUM, SERUM 8.3 mg/dL (8.5-10.1); POTASSIUM 3.9 mmol/L (3.5-5.1)
[2023-07-24 07:24] LABS: BASOPHILS % (AUTO) 0.2 % (0.0-2.0); EOSINOPHILS # (AUTO) 0.4 K/uL (0.0-0.7); EOSINOPHILS % (AUTO) 6.7 % (0.0-6.0); HEMATOCRIT 35 % (39-51); HEMOGLOBIN 11.8 g/dL (13.5-17.5); LYMPHOCYTES # (AUTO) 0.8 K/uL (0.8-4.8); LYMPHOCYTES % (AUTO) 15.1 % (20.0-44.0); MEAN CORPUSCULAR HEMOGLOBIN 29 PG (26.0-33.0); MEAN CORPUSCULAR HGB CONC 34 g/dl (31.0-36.0); MEAN CORPUSCULAR VOLUME 85 fL (80-96); MONOCYTES # (AUTO) 0.6 K/uL (0.1-1.30); MONOCYTES % (AUTO) 11.5 % (2.0-12.0); NEUTROPHILS # (AUTO) 3.6 K/uL (1.8-8.9); NEUTROPHILS % (AUTO) 66.5 % (43.0-81.0); PLATELET COUNT (AUTO) 217 K/uL (150-450); RED BLOOD CELL COUNT(AUTO) 4.12 MIL/uL (4.5-6.0); RED CELL DISTRIBUTION WIDTH 15.3 % (11.5-15.0); WHITE BLOOD COUNT (AUTO) 5.4 K/uL (4.3-11.0)
[2023-07-24] MEDS ORDERED: IV NS 0.9% 1,000 ML IV PRN (07:54)
== END 2023-07-24 21:20 | DRG 354 ==
LOC: ER 20:32 → MED 07-19 06:54 → ICU 07-21 10:47 → TELE 07-21 20:55
PROVIDERS: ADMIT Internal Medicine; ATTEND Internal Medicine
PROC: 0WUF0JZ Supplement Abdominal Wall with Synthetic Substitute, Open Approach (ICD-10-PCS; principal; 2023-07-21)
PROC: 0DBU0ZZ Excision of Omentum, Open Approach (ICD-10-PCS; 2023-07-21)
DX: K42.0 Umbilical hernia with obstruction, without gangrene (principal); I13.0 Hypertensive heart and chronic kidney disease with heart failure and stage 1 through stage 4 chronic kidney disease, or unspecified chronic kidney disease; N17.9 Acute kidney failure, unspecified; J44.9 Chronic obstructive pulmonary disease, unspecified; E87.20 Acidosis, unspecified; I50.9 Heart failure, unspecified; N18.9 Chronic kidney disease, unspecified; K21.9 Gastro-esophageal reflux disease without esophagitis; E78.5 Hyperlipidemia, unspecified; I25.2 Old myocardial infarction; E83.52 Hypercalcemia; E11.22 Type 2 diabetes mellitus with diabetic chronic kidney disease; I71.20 Thoracic aortic aneurysm, without rupture, unspecified; K66.0 Peritoneal adhesions (postprocedural) (postinfection); Z79.4 Long term (current) use of insulin; Z87.891 Personal history of nicotine dependence; Z79.82 Long term (current) use of aspirin; R00.1 Bradycardia, unspecified
CPT/HCPCS: 36415; 36600; 71045-TC; 74018; 74150-TC; 80048-TC; 80053-TC; 80076-TC; 82550-TC; 82962-TC; 83690-TC; 83735-TC; 83970; 84100-TC; 84155; 84165; 84484-TC; 85025-TC; 85610-TC; 85730-TC; 86850-TC; 87081-TC; 88302-TC; 88304-TC; 93307-TC; 94799-TC; 97116-TC; 97530-TC; A4223; A6209; C1781; G0378; J0360; J0461; J0690; J1650; J1815; J2250; J2270; J2405; J2704; J2765; J3010; J3490; J7030; J7050; Q9967

== ENCOUNTER 2024-02-19 20:15 | Emergency (ER) | payer BC, MEDICAID ==
[~2024-02-19] VITALS: Ht 172.7 cm; Wt 101.2 kg
[~2024-02-19 20:15] MED LIST changes: -AMLO10TA4 PO; -BLOO-668 IN; -CHOL100062 PO; +DAPA10TA PO; +DULA1.5P SQ; +ICOS1CAP PO; +INSU100I34 SQ; -INSU100V36 SQ; -OMEG1CAP PO
[2024-02-19] MEDS ORDERED: PANTOPRAZOLE 40 MG VIAL ONE (20:37)
[2024-02-19] MEDS ORDERED: ONDANSETRON HCL/PF 4 MG/2 ML VIAL ONE (20:37)
[2024-02-19] MEDS ORDERED: LIDOCAINE VISCOUS 2% UD 15 ML UDC ONE (20:38)
[2024-02-19] MEDS ORDERED: MAG HYDROX/AL HYDROX/SIMETH 30 ML UDC ONE (20:38)
[2024-02-19] MEDS: IV NS 0.9% 500 ML BAG IV ONE (21:06)
[2024-02-19] MEDS: PANTOPRAZOLE 40 MG VIAL IV ONE (21:06)
[2024-02-19] MEDS: ONDANSETRON HCL/PF 4 MG/2 ML VIAL IVP ONE (21:06)
[2024-02-19 21:18] LABS: BASOPHILS # (AUTO) 0.1 K/uL (0.0-0.2); BASOPHILS % (AUTO) 1.2 % (0.0-2.0); EOSINOPHILS # (AUTO) 0.2 K/uL (0.0-0.7); EOSINOPHILS % (AUTO) 2.6 % (0.0-6.0); HEMATOCRIT 52 % (39-51); HEMOGLOBIN 17.3 g/dL (13.5-17.5); LYMPHOCYTES # (AUTO) 1.6 K/uL (0.8-4.8); LYMPHOCYTES % (AUTO) 26.7 % (20.0-44.0); MEAN CORPUSCULAR HEMOGLOBIN 30 PG (26.0-33.0); MEAN CORPUSCULAR HGB CONC 34 g/dl (31.0-36.0); MEAN CORPUSCULAR VOLUME 89 fL (80-96); MONOCYTES # (AUTO) 0.4 K/uL (0.1-1.30); MONOCYTES % (AUTO) 7.6 % (2.0-12.0); NEUTROPHILS # (AUTO) 3.7 K/uL (1.8-8.9); NEUTROPHILS % (AUTO) 61.9 % (43.0-81.0); PLATELET COUNT (AUTO) 299 K/uL (150-450); RED BLOOD CELL COUNT(AUTO) 5.78 MIL/uL (4.5-6.0); RED CELL DISTRIBUTION WIDTH 14.7 % (11.5-15.0); WHITE BLOOD COUNT (AUTO) 5.9 K/uL (4.3-11.0)
[2024-02-19] MEDS: LIDOCAINE VISCOUS 2% UD 15 ML UDC MM ONE (21:19)
[2024-02-19] MEDS: MAG HYDROX/AL HYDROX/SIMETH 30 ML UDC PO ONE (21:19)
[2024-02-19 21:24] LABS: CALCIUM, SERUM 10.3 mg/dL (8.5-10.1); CARBON DIOXIDE 26 mmol/L (21-32); CHLORIDE 101 mmol/L (98-107); CREATININE 2.4 mg/dL (0.6-1.3); GLUCOSE 149 mg/dL (74-106); POTASSIUM 4.7 mmol/L (3.5-5.1); SODIUM SERUM 135 mmol/L (136-145); UREA NITROGEN, BLOOD 27 mg/dL (7-18)
[2024-02-19 21:29] LABS: ALANINE AMINOTRANSFERASE 35 U/L (12-78); ALBUMIN 4.3 g/dL (3.4-5.0); ALKALINE PHOSPHATASE 65 U/L (46-116); ASPARTATE AMINOTRANSFERASE 32 U/L (15-37); BILIRUBIN,DIRECT 0.2 mg/dL (0.0-0.2); BILIRUBIN,TOTAL 1.2 mg/dL (0.2-1.0); LIPASE 58 U/L (16-77); TOTAL PROTEIN, SERUM 9.2 g/dL (6.4-8.2)
[2024-02-19 22:29] VITALS: BP 118/75; TEMP 98; O2SAT 98
== END 2024-02-19 22:30 ==
LOC: ER 20:17
DX: R10.13 Epigastric pain (principal); I11.0 Hypertensive heart disease with heart failure; I50.9 Heart failure, unspecified; I25.10 Atherosclerotic heart disease of native coronary artery without angina pectoris; I72.3 Aneurysm of iliac artery; E11.9 Type 2 diabetes mellitus without complications
CPT/HCPCS: 99285; 74176; 96374; 71045; 96375; 93005; 85025; 80048; 83690; 80076; 36415; 84484; J2405; J7030; J2470